=== PATIENT | male | born 1955 | race Caucasian/White ===

== ENCOUNTER 2018-06-19 09:10 | Day surgery (SDC) | payer BC ==
[~2018-06-19] VITALS: Ht 182.9 cm; Wt 63.8 kg
[~2018-06-19 09:10] MED LIST: ASPIR-TRIN325 MG PO; COLACE100 MG PO; HYDROCODON-ACE1 EA11 PO; IBUPROFEN800 MG PO; NORCO 5-325 TA1 EACH PO
[2018-06-19] MEDS ORDERED: TYLENOL325 M1 PO (09:35)
--- NOTE | 2018-06-19 12:17 | NUR ---
06/19/18 1217 Sheets,Sis 1210 PT ARRIVED ON 3L VIA NC, RESP EVEN AND UNLABORED. BP LOW FLUIDS INCREASED, PT NONAROUSABLE TO PAINFUL STIMULI.
--- NOTE | 2018-06-20 09:48 | OR ---
[facility] [address], [place] [address] Signed DATE OF OPERATION: 06/19/2018 SURGEON: Christy Woody MD PREOPERATIVE DIAGNOSIS: Screening. POSTOPERATIVE DIAGNOSES: 1. Minimal sigmoid diverticulosis. 2. Enlarged prostate (left greater than right). PROCEDURE: Colonoscopy without biopsy. ESTIMATED BLOOD LOSS: None. INDICATIONS: Joshua is a 62-year-old gentleman, asked to see me for his initial screening colonoscopy. After eight years, he reestablish with a new primary care provider. He seems to have no lower GI complaints. There is no family history of colon cancer or polyps. Although he has been a long-time smoker, which increases his risk for colon cancer. Fortunately, he quit smoking and drinking. I gave Joshua and his a pamphlet in the office on colonoscopy. We looked at that together along with the risks including, but not limited to gas bloating, crampy abdominal pain, bleeding, perforation, requiring surgery, and missed diagnosis. We also discussed the need for IV conscious sedation. He had expressed understanding and wished to proceed. PROCEDURE NOTE: Joshua was taken into our endoscopy suite and placed in the left lateral decubitus position. He was given a total of 9 mg of Versed and 200 mcg of fentanyl. A digital rectal exam was performed. He really has very minimal in the way of hemorrhoid tissue. However, his prostate is enlarged and certainly the left is significantly more prominent than the right. It is something he should review with his primary care provider and/or urologist along with his PSA level. After this the adult colonoscope was introduced, advanced all around into the cecum under direct visualization of camera without difficulty. We did use extra sedation and abdominal compression in order to advance the scope. Daryl's prep was quite nice. The scope was then slowly withdrawn. He had a few diverticula in the sigmoid colon. They were quite minimal. They were small in number, small in size, and scattered about. Has sigmoid colon is a bit tortuous, and it took a Electronically Signed By: CHRISTY WOODY MD 06/20/18 0948 PATIENT NAME: JOSHUA MICHAELS OPERATIVE REPORT DATE OF : 55 REPORT #: [id number] PHYSICIAN: CHRISTY WOODY MD PCP: JORDAN SAINZ MD REPORT IS CONFIDENTIAL AND NOT TO BE RELEASED WITHOUT AUTHORIZATION [facility] [address] [place] [id number] Signed few minutes to get through there and the scope did drag in the sigmoid colon. Consequently, we had to use some extra sedation and abdominal compression in order to advance the scope. Once back in the rectum, the scope had been retroflexed and there was no additional pathology noted above the anal canal except some very minimal routine hemorrhoid tissue. After this, the gas was suctioned out. The colonoscope was removed. Daryl tolerated the procedure quite well. RECOMMENDATIONS: Daryl can follow up my office in 10 years for repeat colonoscopy. He should follow up with his primary care provider or urologist for repeat prostate exam along with PSA level. Christy Woody MD ALB/MODL /[id number] cc: Jordan Sainz MD Copies: JORDAN SAINZ MD ~ Electronically Signed By: CHRISTY WOODY MD 06/20/18 0948 PATIENT NAME: JOSHUA MICHAELS OPERATIVE REPORT DATE OF : 55 REPORT #: [id number] PHYSICIAN: CHRISTY WOODY MD PCP: JORDAN SAINZ MD REPORT IS CONFIDENTIAL AND NOT TO BE RELEASED WITHOUT AUTHORIZATION
== END 2018-06-19 13:27 | disposition home or self-care (01) ==
LOC: OPS 09:10 → DS 09:10 → OPS 10:30 → DS 10:30 → OPS 13:27
PROVIDERS: Colon & Rectal Surgery
PROC: 0DJD8ZZ Inspection of Lower Intestinal Tract, Via Natural or Artificial Opening Endoscopic (ICD-10-PCS; principal; 2018-06-19 10:30)
DX: Z12.11 Encounter for screening for malignant neoplasm of colon (principal); K57.30 Diverticulosis of large intestine without perforation or abscess without bleeding; N40.0 Benign prostatic hyperplasia without lower urinary tract symptoms; F17.210 Nicotine dependence, cigarettes, uncomplicated
CPT/HCPCS: 99153; G0500; J2250; J3010; J7120